=== PATIENT | male | born 1980 | race Caucasian/White ===

== ENCOUNTER 2019-01-07 17:05 | Emergency (ER) | payer MEDICAID ==
[~2019-01-07] VITALS: Ht 167.6 cm; Wt 81.8 kg
[~2019-01-07 17:05] MED LIST: CYCL10TA7 PO; HYDR-4011 PO; NALO4SPR NS; NAPR-985 PO; PRED20TA PO
[2019-01-07 17:49] VITALS: Ht 167.6 cm; Wt 81.8 kg
[2019-01-07] MEDS ORDERED: METHYLPREDNISOLONE 125 MG INJ IV ONE ×2 (19:00→19:30)
[2019-01-07] MEDS ORDERED: KETOROLAC 30 MG INJ IV STA (19:00)
[2019-01-07] MEDS ORDERED: KETOROLAC 30 MG INJ IM STA (19:09)
[2019-01-07] MEDS ORDERED: CYCLOBENZAPRINE 10 MG TAB PO ONE (19:30)
[2019-01-07] MEDS ORDERED: predniSONE 20 MG TAB PO ONE (19:30)
[2019-01-07] MEDS ORDERED: HYDROCODONE/APAP (5/325) TAB PO ONE (20:30)
[2019-01-07 20:53] VITALS: BP 133/92; PULSE 65; RESP 16
--- NOTE | 2019-01-08 02:58 | ERD ---
ER Documentation Chief Complaint Chief Complaint lower back pain that radiates to left leg x 1 month HPI 38-year-old male presents with complaint of low back pain radiating to the left leg x1 month, worsening over the past few days. Denies recent trauma or inflicting injury. Patient states to have previously presented to [facility] 1 month ago and was told to have had sciatica, at that time he was prescribed steroids and pain medication which alleviated his pain for a few days but has persisted despite treatment. At this time he notes pain has increased and is now impacting his ambulation. He denies bowel or bladder incontinence, saddle anesthesia. Denies numbness or tingling of the extremity. No fevers, no IVDA, CA, DM, or auto-immune dz. He rates his current pain as a 10 out of 10, for which he is not currently taking any medication to alleviate his symptoms. ROS All systems reviewed and are negative except as per history of present illness. Medications Home Meds Active Scripts Prednisone* (Prednisone*) 20 Mg Tab, 40 MG PO DAILY for 4 Days, #8 TAB Prov:WILLI BANKS PA-C 01/07/19 Cyclobenzaprine Hcl* (Cyclobenzaprine Hcl*) 10 Mg Tablet, 10 MG PO TID, #15 TAB Prov:WILLI BANKS PA-C 01/07/19 Naproxen* (Naprosyn*) 500 Mg Tablet, 500 MG PO BID PRN for PAIN AND/OR INFLAMMATION, #30 TAB Prov:WILLI BANKS PA-C 01/07/19 Naloxone HCl nasal spray (Narcan 4 mg/0.1 mL nasal) 4 Mg [place], 4 MG NS .Q2-3MIN for OPIOID OVERDOSE, #2 SPRAY 0 Refills [place] 0.1 mL into one nostril. Repeat with second device into other nostril after 2-3 minutes if no or minimal response Prov:WILLI BANKS PA-C 01/07/19 Hydrocodone/Acetaminophen (Brusett 5-325 Tablet) 1 Each Tablet, 1 TAB PO Q6H PRN for PAIN, #12 TAB Prov:WILLI BANKS PA-C 01/07/19 Allergies Allergies: Coded Allergies: No Known Allergy (Unverified , 01/07/19) PMhx/Soc History of Surgery: Yes (hernia repair ) Hx Alcohol Use: No Hx Substance Use: No Hx Tobacco Use: No Smoking Status: Never smoker Physical Exam Vitals Vital Signs Date Temp Pulse Resp B/P (MAP) Pulse Ox O2 O2 Flow FiO2 Time Delivery Rate 01/07/19 98.2 65 16 133/92 98 Room Air 20:53 (106) 01/07/19 98.1 76 16 122/86 97 17:49 (98) Physical Exam General: alert,cooperative. In acute distress due to pain. A&Ox3 Head/Eyes: normocephalic, atraumatic, PERRL, conjunctiva normal Neck: supple, nontender, full ROM, no midline vertebral tenderness, no LAD Lungs: no respiratory distress, lungs CTA bilaterally, no wheezes, no rhonchi, no retractions Cardiovascular: HR normal, no pedal edema Abdomen: soft, nontender, no rebound, no guarding Extremities: Inspection normal, Normal range of motion to all major joints, however weight bearing elicits pain to lower back Back: Inspection normal. No CVA tenderness. Admits to tenderness to palpation of the lumbar spine with bilateral lower lumbar paraspinous muscle spasm and tenderness, Full ROM, however, ROM elicits pain, positive left straight leg raise, normal dorsiflexion BLE, NVI distally. Skin: normal to inspection, color normal, warm, dry, intact Neuro: alert, normal speech, no motor deficits, no sensory deficits, slow steady gait Results 24 hrs Current Medications Medications Dose Sig/Roman Start Time Status Last (Trade) Ordered Route PRN Stop Time Admin Dose Reason Admin Ketorolac 30 mg ONCE STAT 01/07/19 DC Tromethamine IV 19:00 (Toradol) 01/07/19 19:18 125 mg ONCE ONCE 01/07/19 DC Methylprednis IV 19:00 olone Sodium 01/07/19 19:18 Succinate (Solu-Medrol) 10 mg ONCE ONCE 01/07/19 DC 01/07/19 Cyclobenzapri PO 19:30 19:23 ne HCl 01/07/19 19:31 (Flexeril) Ketorolac 30 mg ONCE STAT 01/07/19 DC 01/07/19 Tromethamine IM 19:09 19:23 (Toradol) 01/07/19 19:11 125 mg ONCE ONCE 01/07/19 DC Methylprednis IV 19:30 olone Sodium 01/07/19 19:30 Succinate (Solu-Medrol) Prednisone 60 mg ONCE ONCE 01/07/19 DC 01/07/19 (Prednisone) PO 19:30 19:23 01/07/19 19:31 1 tab ONCE ONCE 01/07/19 DC 01/07/19 Acetaminophen PO 20:30 20:45 / 01/07/19 20:31 Hydrocodone Bitart ([place] (5/325)) Procedures/MDM PROCEDURE: CT L-Spine. FINDINGS: No acute appearing fracture lumbar spine. Superior endplate irregularity of the posterior aspect of the L5 vertebral body, most consistent with a Schmorl node and disc calcification (sagittal image 51). Straightening of the normal lordosis without evidence of vertebral body subluxation or acute appearing malalignment. No acute appearing abnormality of the paravertebral soft tissues. Multilevel disc disease with mild height loss and multilevel shallow endplate Schmorl node formation throughout the lumbar spine. At L3-L4 there is a 4 mm broad-based disc bulge and mild facet arthropathy with ligamentum flavum thickening. Findings result in moderate stenosis of the central canal and bilateral neural foraminal stenosis. At L4-L5 there is a 5 mm broad-based disc bulge, combined with mild facet arthropathy and ligamentum flavum thickening results in moderate to severe central canal stenosis (series 4 image 76) and mild to moderate bilateral neural foraminal stenosis. At L5-S1 there is a 4 mm disc bulge, and mild to moderate facet arthropathy. Findings result in effacement lateral recesses with possible impingement of the descending S1 nerve roots bilaterally (axial image 87) and mild to moderate bilateral neural foraminal stenosis. Mild disc bulging without significant spinal stenosis at the remaining levels. IMPRESSION: No evidence of acute fracture of the lumbar spine. Multilevel degenerative disc disease with multilevel endplate Schmorl node formation and disc bulging. At L3-L4 there is moderate stenosis of the central canal and bilateral neural foramen. At L4-L5 spondylotic changes result in moderate to severe spinal canal stenosis, and mild to moderate bilateral neural foraminal stenosis. At L5-S1 disc bulging results in effacement of the lateral recesses with possible impingement of the descending S1 nerve roots bilaterally, and mild to moderate bilateral neural foraminal stenosis. Straightening of the normal lordosis may be degenerative, positional or related to muscle spasm. MDM: This is a 38yo M with hx of sciatica presenting for exacerbating episode. Patient is in mild distress due to pain, ambulates with slow, steady gait, stable-appearing and with VSS. CT imaging for the Lumbar spine performed d/t 10 pain with midline tenderness of the L-spine. No acute fracture noted, however, multi-level stenosis and disk bulging were seen. No neuro deficits on physical exam. The patient had no significant deformity, step-offs, altered mental status, or neurologic deficits on physical examination. No bowel or bladder incontinence. No fevers or other systemic complaints. Suspicion for cauda equina, cord compression, epidural abscess, abdominal aortic aneurysm or other serious etiology is low. Pt was treated with NSAIDs, muscle relaxants, and steroids for pain while in ED with improvement in pain upon re-evaluation. Pt will be discharged home with prescription for continued NSAID, muscle relaxant, and short course steroid as well as 2-3 day course [place] for acute pain, CURES negative. I do not believe pt to be at risk for overdose, however, I have ad vised to use the least amount of this medication and for the shortest course possible. Narcan rx also given. I have explained to patient that I recommend follow-up with PCP within the next 1-2 days for further management and possible MRI imaging and/or possible orthopedic consult. Strict ED return precautions discussed, pt is to return at the onset of any new or worsening pain, bow el/bladder incontinence, fever, saddle anesthesia, or loss of motor function as these can be indications of a surgical emergency. Pt expressed verbal understanding and agreement to treatment plan. All questions addressed and answered. Departure Diagnosis: Primary Impression: Sciatica Laterality: left Qualified Codes: M54.32 - Sciatica, left side Additional Impression: Spinal stenosis Spinal region: lumbar Neurogenic claudication status: unspecified Qualified Codes: M48.061 - Spinal stenosis, lumbar region without neurogenic claudication Condition: Stable Patient Instructions: Back Exercises, Lumbar, Back Pain W/ Sciatica [facility] Usted se pierce hecho un examen mdico de control que le indica que no est en hong condicin que requiera tratamiento urgente en el Departamento de Emergencia. Un estudio ms profundo y el tratamiento de sales condicin pueden esperar sin ningn riesgo hasta que usted sea atendida/o en el consultorio de sales mdico o hong clnica. Es responsabilidad suya arreglar hong lee para el seguimiento del yonathan. MANEJO DE CONDICIONES NO URGENTES EN EL FUTURO 1) Si usted tiene un mdico de atencin primaria: Usted debera llamar a sales mdico de atencin primaria antes de venir al departamento de emergencia. Despus de las horas de consultorio, sales doctor o sales asociado/a est disponible por telfono. El mdico o enfermero de eli en el servicio telefnico puede asesorarle por aston medio para atender el problema, o yonathan contrario se puede programar hong lee. 2) Si usted no tiene un mdico de atencin primaria: Llame al mdico o clnica de referencia que aparece abajo randolph las horas de consultorio para hacer hong lee para que le vean. CLINICAS: [facility] [phone] [facility] [phone] [facility]. [facility] [phone] [address] [facility] [facility] [phone] [facility] [address] [place] [id number] [phone] [facility] [phone] [facility] Urgent Care 7 a.m.- 11 p.m. Every Day of the Week NO APPOINTMENT OR AUTHORIZATION NEEDED Additional Instructions: Please follow-up with your PCP within the next 1 to 2 days for further management. You may require an MRI for further diagnosis however at this time no surgical emergency was found. Return to the ED if symptoms persist or worsen, develop bowel bladder or bowel incontinence, numbness of the genital region or no longer able to move your extremities. WILLI BANKS PA-C Jan 08, 2019 02:58
== END 2019-01-07 20:53 | disposition home or self-care (01) ==
LOC: FTE 17:05
DX: M54.42 Lumbago with sciatica, left side (principal); M48.061 Spinal stenosis, lumbar region without neurogenic claudication
CPT/HCPCS: 72131; 96372; J1885; J7512; Z7502; Z7610